=== PATIENT | male | born 1935 | race Caucasian/White ===

== ENCOUNTER → 2017-06-13 | Outpatient (CLI) | payer MEDICARE ==
[~2017-06-13] VITALS: Ht 180.3 cm; Wt 105.1 kg
[~2017-06-13] MED LIST: AMLO5TAB2 PO; CHLORHEXIDINE GLUCONATE 2 % 1 PACK (2 CLOTHS) TOPICAL PRN; LACTATED RINGER'S 1000 ML IV PRN; LIDOCAINE HCL 1% PF 5 ML SYRINGE OTHER ONE; LOVA20TA PO; METO50TA PO; METOPROLOL TARTRATE 25 MG TAB PO PRN; MULTTAB67 PO; POVIDONE IODINE 5% (ANTISEPSIS KIT) 4 APPLICATIONS EACH NARE PRN; PROPOFOL 200 MG/20 ML AMP IV ONE; SODIUM CHLORID 0.9% 500 ML IV PRN
--- NOTE | 2017-06-13 11:57 | PD.PROCEDR ---
GI Procedure PROCEDURE PERFORMED Endoscopic ultrasound INDICATION FOR PROCEDURE [] PROCEDURE: The procedure, risks and benefits were discussed with Mr. Moore and informed consent was obtained. Anesthesia sedated him with Diprivan. He was placed in the left lateral decubitus position. Endoscopic ultrasound: The Pentax videoscope was introduced through the oropharynx and advanced to the second portion of the duodenum . FINDINGS: The pancreas appeared to be unremarkable and within normal limits The pancreatic duct appeared to be unremarkable also The ampulla appeared to be prominent and mildly hypoechoic at 1.3 cm A stent was noted through the common bile duct which was prominent and had filling defects with acoustic shadowing suggestive of stones in the bile duct No lymphadenopathy was seen ESTIMATED BLOOD LOSS: None SPECIMENS REMOVED: None COMPLICATIONS: None IMPRESSION: Prominent ampulla Choledocholithiasis PLAN: Plan for an ERCP with spyglass at [facility] with me Check CEA, CA 199, CBC and CMP prior to procedure Lemuel Parekh MD Jun 13, 2017 11:57
[2017-06-13 12:30] VITALS: BP 142/82; PULSE 68; RESP 20; TEMP 96.9; O2SAT 98
--- NOTE | 2017-06-13 19:58 | EKG ---
Date Performed: 06/13/2017 Time Performed: 10:29:43 PTAGE: 81 years EKG: Sinus rhythm NORMAL ECG NO PREVIOUS TRACING DOCTOR: Ghulam Melo Interpretating Date/Time 06/13/2017 19:56:29
== END ==
LOC: HSDC 09:32
PROVIDERS: ATTEND Internal Medicine Gastroenterology
DX: K83.1 Obstruction of bile duct (principal); K80.50 Calculus of bile duct without cholangitis or cholecystitis without obstruction; I10 Essential (primary) hypertension
CPT/HCPCS: 00731; 43259; 93005; J7120

== ENCOUNTER → 2017-06-25 | Outpatient (CLI) | payer MEDICARE ==
[~2017-06-25] MED LIST changes: -CHLORHEXIDINE GLUCONATE 2 % 1 PACK (2 CLOTHS) TOPICAL PRN; -LACTATED RINGER'S 1000 ML IV PRN; -LIDOCAINE HCL 1% PF 5 ML SYRINGE OTHER ONE; -METOPROLOL TARTRATE 25 MG TAB PO PRN; -POVIDONE IODINE 5% (ANTISEPSIS KIT) 4 APPLICATIONS EACH NARE PRN; -PROPOFOL 200 MG/20 ML AMP IV ONE; -SODIUM CHLORID 0.9% 500 ML IV PRN
[2017-06-25 13:59] LABS: AUTOMATED NEUTROPHIL # 3.3 TH/MM3 (1.8-7.7); BASOPHIL % 0.7 % (0.0-2.0); EOSINOPHIL # 0.3 TH/MM3 (0-0.4); EOSINOPHIL % 3.8 % (0.0-4.0); HEMATOCRIT 37.7 % (39.0-51.0); HEMOGLOBIN 12.9 GM/DL (13.0-17.0); LYMPH % 33.2 % (9.0-44.0); LYMPHOCYTE # 2.2 TH/MM3 (1.0-4.8); MEAN CORPUSCULAR HEMOGLOBIN 33.3 PG (27.0-34.0); MEAN CORPUSCULAR HGB CONC 34.4 % (32.0-36.0); MEAN PLATELET VOLUME 7.2 FL (7.0-11.0); MONO % 12.8 % (0.0-8.0); MONOCYTE # 0.9 TH/MM3 (0-0.9); NEUT % 49.5 % (16.0-70.0); PLATELET COUNT 173 TH/MM3 (150-450); RED BLOOD COUNT 3.88 MIL/MM3 (4.50-5.90); RED CELL DISTRIBUTION WIDTH 14.6 % (11.6-17.2); WHITE BLOOD COUNT 6.6 TH/MM3 (4.0-11.0)
[2017-06-25 14:00] LABS: ALBUMIN 3.3 GM/DL (3.4-5.0); AST (GOT) 51 U/L (15-37); BICARBONATE 28.4 MEQ/L (21.0-32.0); BLOOD UREA NITROGEN 9 MG/DL (7-18); CALCIUM 9.2 MG/DL (8.5-10.1); CHLORIDE 102 MEQ/L (98-107); CREATININE 0.96 MG/DL (0.60-1.30); GLOMERULAR FILTRATION RATE 75 ML/MIN (>89); GLUCOSE,FASTING 114 MG/DL (74-99); SODIUM (NA) 136 MEQ/L (136-145)
[2017-06-25 14:05] LABS: ALKALINE PHOSPHATASE 217 U/L (45-117); ALT (GPT) 68 U/L (12-78); TOTAL BILIRUBIN ADULT 1.2 MG/DL (0.2-1.0); TOTAL PROTEIN 7.6 GM/DL (6.4-8.2)
[2017-06-25 14:08] LABS: CARCINOEMBRYONIC ANTIGEN 1.5 NG/ML (0.2-5.0)
[2017-06-25 14:45] LABS: CA 19-9 25.3 U/ML (0.0-35.0)
== END ==
LOC: PLAB 10:02
PROVIDERS: ATTEND Internal Medicine Gastroenterology
DX: R17 Unspecified jaundice (principal); R93.8 Abnormal findings on diagnostic imaging of other specified body structures; R79.89 Other specified abnormal findings of blood chemistry; K83.1 Obstruction of bile duct; Z80.9 Family history of malignant neoplasm, unspecified
CPT/HCPCS: 36415; 80053; 82378; 85025; 86301